=== PATIENT | male | born 1980 | race African-American/Black ===

== ENCOUNTER 2025-04-19 07:19 | Emergency (ER) | payer BC ==
[~2025-04-19] VITALS: Ht 167.6 cm; Wt 99.5 kg
[~2025-04-19 07:19] MED LIST: NOCURR
[2025-04-19] MEDS: KETOROLAC TROMETHAMINE 60 MG/2 ML VIAL IM ONE (07:59)
[2025-04-19] MEDS: LIDOCAINE 5% TRANSDERMAL PATCH TD ONE (07:59)
[2025-04-19] MEDS ORDERED: METH-659 PO (08:19)
[2025-04-19] MEDS ORDERED: LIDO-57 TP (08:19)
[2025-04-19] MEDS ORDERED: IBUP-1492 PO (08:19)
[2025-04-19 08:25] VITALS: BP 148/86; PULSE 91; RESP 18; TEMP 98.1; O2SAT 98
== END 2025-04-19 08:42 | disposition home or self-care (01) ==
LOC: EMS 07:19
DX: M54.18 Radiculopathy, sacral and sacrococcygeal region (principal); M54.17 Radiculopathy, lumbosacral region; F12.90 Cannabis use, unspecified, uncomplicated
CPT/HCPCS: 99283; 96372; J1885